=== PATIENT | female | born 1945 ===

== ENCOUNTER 2024-12-21 05:20 | Day surgery (SDC) | payer OTHER ==
[2024-12-14 13:18] VITALS: BP 170/90
[~2024-12-21] VITALS: Ht 154.9 cm; Wt 55.3 kg
[~2024-12-21 05:20] MED LIST: ATACAND HCT 161 EACH PO; CARVEDILOL6.25 MG; PLAVIX75 MG PO; SYNTHROID50 MCG PO; TREXALL5 MG PO; XATMEP2.5 MG/1 M PO
[2024-12-21] MEDS ORDERED: HEMOSTATIC MATRIX 1 KIT KIT TOP ONE (08:05)
[2024-12-21] MEDS ORDERED: POVIDONE-IODINE 118 ML BOTT TOP ONE ×2 (08:05→11:59)
[2024-12-21] MEDS ORDERED: LIDOCAINE HCL 1%/EPINEPHRINE 20ML VIAL IJ ONE (08:05)
[2024-12-21] MEDS ORDERED: DIBUCAINE 30 GM TUBE ONE (08:05)
[2024-12-21] MEDS ORDERED: BUPIVACAINE HCL/MPF 0.5% 30ML VIAL ONE (08:05)
[2024-12-21] MEDS ORDERED: CEFTRIAXONE SODIUM 2,000 MG VIAL ONE (08:06)
[2024-12-21] MEDS ORDERED: METRONIDAZOLE/SODIUM CHLORIDE 500 MG/100 ML PIGGYBACK IV ONE (08:06)
[2024-12-21] MEDS ORDERED: A/F PAIN RELIE500 MG PO (08:56)
[2024-12-21] MEDS ORDERED: NEURONTIN300 MG PO (08:56)
[2024-12-21] MEDS ORDERED: MORPHINE SULFATE 4 MG/ML VIAL IV ONE ×2 (11:50→12:20)
[2024-12-21] MEDS ORDERED: MEPERIDINE HCL 50 MG/ML AMPUL IM ONE (12:50)
[2024-12-21 13:14] LABS: HEMATOCRIT 32.2 % (36.0-45.00); HEMOGLOBIN 10.9 g/dL (12.0-15.00); MEAN CELL VOLUME 98.3 fL (80.00-100.00); MEAN CORPUSCULAR HEMOGLOBIN 33.2 pg (27.00-32.0); MEAN CORPUSCULAR HGB CONC 33.7 g/dl (32.0-36.0); PLATELET COUNT 194 K/uL (150-450); RED BLOOD COUNT 3.27 M/uL (4.00-6.00); RED CELL DISTRIBUTION WIDTH 13.9 % (11.5-14.5)
[2024-12-21] MEDS ORDERED: ENALAPRILAT DIHYDRATE 1.25 MG/ML VIAL IV ONE (13:36)
== END 2024-12-21 15:15 | disposition home or self-care (01) ==
LOC: CIR.AMB 05:20
PROVIDERS: ATTEND Surgery
DX: D12.8 Benign neoplasm of rectum (principal); K62.9 Disease of anus and rectum, unspecified; Z88.6 Allergy status to analgesic agent